=== PATIENT | female | born 1995 | race African-American/Black ===

== ENCOUNTER 2025-01-06 12:28 | Emergency (ER) | payer BC, OTHER ==
[~2025-01-06] VITALS: Ht 162.6 cm; Wt 92.0 kg
[2025-01-06 12:40] VITALS: O2SAT 99
[2025-01-06] MEDS: IBUPROFEN 600MG TABLET PO ONE (14:45)
[2025-01-06 15:07] LABS: BASOPHILS % 0.8 % (0.0-2.0); EOSINOPHILS % 5.8 % (0.0-5.0); HEMATOCRIT. 38.0 % (36.0-48.0); HEMOGLOBIN. 12.1 g/dL (12.0-16.0); LYMPHOCYTES % 26.9 % (20.0-50.0); MEAN PLATELET VOLUME 8.9 fl (7.4-10.4); MONOCYTES % 6.8 % (2.0-8.0); NEUTROPHILS % 59.7 % (40.0-76.0); PLATELET 253 x1000/uL (130-400); RED BLOOD CELL COUNT 4.97 mill/uL (4.2-5.4); RED CELL DISTRIBUTION WIDTH 16.6 % (11.6-14.6)
[2025-01-06 15:15] LABS: HCG SCREEN NEGATIVE
[2025-01-06 15:20] LABS: CREATININE 0.7 mg/dL (0.6-1.0); UREA NITROGEN BLOOD 5 mg/dL (9-23)
[2025-01-06] MEDS ORDERED: IBUP-1455 MT (17:07)
[2025-01-06] MEDS ORDERED: AMOX1TAB16 MT (17:07)
[2025-01-06 17:27] VITALS: BP 134/81; PULSE 81; RESP 16; TEMP 37.1; O2SAT 100
== END 2025-01-06 17:30 | disposition home or self-care (01) ==
LOC: ER 12:28
DX: K04.7 Periapical abscess without sinus (principal); Z79.899 Other long term (current) drug therapy
CPT/HCPCS: 36415; 80048; 84703; 85025; 86850; 86900; 99283